=== PATIENT | female | born 1950 | race American Indian/Alaskan Native ===

== ENCOUNTER 2017-02-19 07:59 | Day surgery (SDC) | payer BC, MEDICAID ==
[2017-02-19 08:24] VITALS: BMI 27.0
[2017-02-19] MEDS ORDERED: Midazolam 2 MG/2 ML VIAL ONE (09:16)
[2017-02-19] MEDS ORDERED: Propofol 10 mg/ml Inj (20 ML) ONE (09:16)
[2017-02-19 09:37] VITALS: TEMP 97.6; O2SAT 100
[2017-02-19 10:34] VITALS: BP 121/67; PULSE 68; RESP 12
== END 2017-02-19 10:32 | disposition home or self-care (01) ==
LOC: C.ENDO 07:59
PROVIDERS: ATTEND Internal Medicine Gastroenterology
DX: Z12.11 Encounter for screening for malignant neoplasm of colon (principal); Z53.09 Procedure and treatment not carried out because of other contraindication
CPT/HCPCS: 82948; J2250; J2704

== ENCOUNTER 2017-02-24 09:25 | Day surgery (SDC) | payer BC, MEDICAID ==
[2017-02-24] MEDS ORDERED: Iodixanol 320 MG/ML 200 ML BOTTLE IV ONE (10:28)
[2017-02-24] MEDS ORDERED: Lidocaine 2% Inj (20ml) ONE (10:32)
[2017-02-24] MEDS ORDERED: Propofol 10 mg/ml Inj (20 ML) ONE (10:35)
[2017-02-24] MEDS ORDERED: Midazolam 2 MG/2 ML VIAL ONE (10:36)
--- NOTE | 2017-02-24 10:39 | PCM.IRPREO ---
Pre Procedure Note - History Proposed Procedure: Angiogram and SFA intervention. Pre-Op Diagnosis: Claudication, PVD - Previous Medical/Surgical History Cardiac: Hypertension, PVD - Pre Procedure Were any radiologic studies performed in the last 12 months: Yes List of radiologic studies performed: CT angiogram Was medical management performed in the past 24 months: Yes List of medical management performed: ASA, PLavix, angiogram with stent of left SFA. Clinical indication for the procedure: 2 block claudication Have risks and benefits been explained to the patient: Yes Risks and benefits been explained to the patient: Risk: bleeding, hematoam, emboli, vessel injury, limb loss. Have alternatives to surgery explained to the patient as applicable: Yes - Allergies Allergies: Allergies No Known Allergies Allergy (Verified 07/27/15 08:51) - Physical Exam General Appearance: No distress Mental Status: Alert & Oriented x3 Heart: WNL Lungs: WNL GI: WNL - Impression Impression: Pt with claudication and CTA showing both right and left SFA disease. Her symptoms are equally distributed in her right and left leg today. There is possible in stent stenosis of the left SFA stent. Plan left LE angiogram and treatment of any in stent stenosis. Will plan right lower extremity angiogram at a later date. Pt. Evaluated Today:Candidate for Anesthesia & Procedure: ASA 3 Malampati 3 - Date & Time Date: 02/24/17 Time: 10:35
[2017-02-24] MEDS ORDERED: Iodixanol 320 MG/ML 100 ML BOTTLE IV ONE (10:58)
--- NOTE | 2017-02-24 11:29 | PCM.SURG1 ---
Surgeon's Initial Post Op Note - Surgeon's Notes Surgeon: Ortega Swartz MD Research And Development Researcher: NONE Type of Anesthesia: IV Sedation Pre-Operative Diagnosis: Claudication Operative Findings: Left lower extremity angiogram showed mild in stent stenosis. There is moderate stenosis proximal to the stent. Post-Operative Diagnosis: SFA stenosis Operation Performed: Angiogram and UTILITIES MANAGER of SFA stenosis with a 5 mm balloon. Specimen/Specimens Removed: None Estimated Blood Loss: EBL {In ML}: 5 Blood Products Given: N/A Drains Used: No Drains Post-Op Condition: Good Date of Surgery/Procedure: 02/24/17 Time of Surgery/Procedure: 11:15
--- NOTE | 2017-02-24 11:32 | CP.SDSHP ---
Same Day Surgery H & P - History Proposed Procedure: Lower extremity angiogram, atherectomy, ACCOUNTING ASSISTANT, stent of SFA stenosis. - Allergies Allergies: Allergies No Known Allergies Allergy (Verified 07/27/15 08:51) - Physical Exam Mental Status: Alert & Oriented x3 Neuro: WNL Heart: WNL Lungs: WNL - Impression Impression: PT PVD and previous left SFA stent. CTA showed left SFA stenosis. Plan angiogram and intervention. Pt. Evaluated Today:Candidate for Anesthesia & Procedure: Yes (ASA 3 Malampati 3) - Date & Time Date: 02/24/17 Time: 10:30 Short Stay Discharge - Short Stay Discharge Admitting Diagnosis/Reason for Visit: CLAUDICATION//PAD Disposition: HOME/ ROUTINE
--- NOTE | 2017-02-24 12:44 | SPECPROC ---
Date of procedure: 02/24/2017 PROCEDURE: 1. Left lower extremity angiogram 2. Balloon angioplasty left SFA 3. The right groin closure with a 6 Taiwanese Angio-Seal closure device. MEDICATIONS: The patient received IV sedation along with physiologic monitoring administered by the anesthesiologist. Contrast: 80 ml EBL: 5 ml HISTORY: Claudication, smoking, severe peripheral vascular disease, previous left SFA stent 07/28/2015. PHYSICIAN(S): Ortega Swartz MD TECHNIQUE: The relative risks and indications of the procedure were explained to the patient and informed consent obtained. The patient was hydrated prior to the procedure and the appropriate labs drawn. The patient was placed supine on the procedure table and the right groin prepped and draped in the usual sterile fashion. The right common femoral artery was accessed with a micropuncture needle. A 5 Taiwanese sheath was placed in the right groin using Seldinger technique. Through the sheath and over a guidewire, a 5 Taiwanese flush catheter was placed in the lower abdominal aorta and bilateral oblique DSA pelvic arteriograms performed. The catheter was then positioned within the contralateral left external iliac artery over a guidewire and left lower extremity PSA arteriogram was performed. An 0.035 guidewire was then advanced through the catheter into the left SFA. Heparin 5000 units IV was given. Balloon angioplasty was performed across the SFA in stent stenosis and SFA stenosis using a 5 millimeter balloon. Angiogram was performed following balloon angioplasty of the SFA. A guidewire and vascular sheet for flushed removed and hemostasis achieved with a 6 Taiwanese Angio-Seal. A dressing was applied. FINDINGS: 1. Pelvic angiogram showed essentially unremarkable lower abdominal aorta and right and left common iliac and external iliac arteries. 2. There is [id number] atherosclerotic disease along with moderate stenosis of the proximal right common femoral artery. 3. The left common femoral artery has mild atherosclerotic disease with no significant stenosis in the proximal segment. 4. The previously placed distal SFA stent is patent. There is mild InStent stenosis. There is a moderate stenosis proximal to the stent. Is also mild stenosis distal to the stent. 5. Runoff shows a patent and robust anterior tibial artery. The posterior tibial artery is patent proximally and then occludes in its mid segment. The peroneal artery occludes in its mid segment. 6. Post balloon angioplasty SFA angiogram showed improved flow with no residual stenosis in the SFA segment. A small dissection is noted beyond the stent. This was treated with prolonged angioplasty. IMPRESSION: 1. Moderate >70 percent stenosis mid SFA proximal to the stent. Mild, 30 percent stenosis of the distal SFA beyond the stent. There is no residual stenosis within the SFA following balloon angioplasty. 2. Left runoff shows a patent anterior tibial artery. posterior tibial artery occludes in its mid segment. The peroneal artery occludes in its mid segment.
[2017-02-24 13:15] VITALS: RESP 20; TEMP 97
[2017-02-24 15:30] VITALS: O2SAT 99
[2017-02-24 15:45] VITALS: BP 170/68; PULSE 83
== END 2017-02-24 16:00 | disposition home or self-care (01) ==
LOC: C.SPRAD 09:25
PROVIDERS: ATTEND Radiology Vascular & Interventional Radiology
DX: I73.9 Peripheral vascular disease, unspecified (principal)
CPT/HCPCS: 36247; 75625; 75716; 75774; 82948; 94770; C1725; C1760; C1769; J1644; J2250; J3010; Q9966; Q9967

== ENCOUNTER 2017-04-02 08:48 | Day surgery (SDC) | payer BC, MEDICAID ==
[2017-04-02 09:39] VITALS: BMI 22.5
[2017-04-02] MEDS ORDERED: Propofol 10 mg/ml Inj (20 ML) ONE ×2 (11:03→11:12)
[2017-04-02] MEDS ORDERED: Midazolam 2 MG/2 ML VIAL ONE (11:03)
--- NOTE | 2017-04-02 11:03 | CP.SDSHP ---
Same Day Surgery H & P - History Proposed Procedure: colonoscopy Pre-Op Diagnosis: screening - Previous Medical/Surgical History Cardiac: Hypertension Endocrine/Metabolic: Diabetes Comments: dementia - Allergies Allergies: Allergies No Known Allergies Allergy (Verified 07/27/15 08:51) - Physical Exam General Appearance: NAD Vital Signs: Vital Signs 04/02/17 09:40 Temperature 97.8 F Pulse Rate 80 Respiratory 20 Rate Blood Pressure 131/78 O2 Sat by Pulse 97 Oximetry Neuro: WNL Heart: WNL Lungs: WNL GI: WNL - {Optional Preform as Required} Abdomen: WNL - Impression Pt. Evaluated Today:Candidate for Anesthesia & Procedure: Yes - Date & Time Date: 04/02/17 Time: 11:03 Short Stay Discharge - Short Stay Discharge Admitting Diagnosis/Reason for Visit: SCREENING Disposition: HOME/ ROUTINE
[2017-04-02 12:07] VITALS: TEMP 98.2
[2017-04-02 13:28] VITALS: BP 131/75; PULSE 65; RESP 14; O2SAT 99
== END 2017-04-02 12:50 | disposition home or self-care (01) ==
LOC: C.ENDO 08:48
PROVIDERS: ATTEND Internal Medicine Gastroenterology
DX: D12.2 Benign neoplasm of ascending colon (principal); D12.3 Benign neoplasm of transverse colon; D12.5 Benign neoplasm of sigmoid colon; K57.30 Diverticulosis of large intestine without perforation or abscess without bleeding; K62.1 Rectal polyp; K64.8 Other hemorrhoids
CPT/HCPCS: 45385; 82948; 88305; J2704; J3010